=== PATIENT | male | born 1990 | race Asian ===

== ENCOUNTER 2018-11-20 22:06 | Emergency (ER) | payer OTHER ==
[~2018-11-20] VITALS: Ht 180.3 cm; Wt 81.8 kg
[2018-11-20 22:07] VITALS: BP 156/85
[2018-11-20] MEDS ORDERED: DIPH25CA32 PO (22:09)
[2018-11-20] MEDS ORDERED: predniSONE 20 MG TAB PO ONE (22:45)
[2018-11-20] MEDS ORDERED: PRED20TA PO (22:47)
== END 2018-11-20 23:02 | disposition home or self-care (01) ==
LOC: M ED 22:06
DX: T78.40XA Allergy, unspecified, initial encounter (principal); L50.9 Urticaria, unspecified